=== PATIENT | female | born 1970 | race Caucasian/White ===

== ENCOUNTER 2020-06-23 08:58 | Emergency (ER) | payer MEDICARE, SELFPAY ==
[2020-06-23 09:00] VITALS: BP 134/95; PULSE 86; RESP 20; TEMP 36.6; O2SAT 100
--- NOTE | 2020-06-23 09:10 | ECG_ITS ---
Measurements Intervals [place] Rate: 81 P: 83 IA: 148 QRS: -40 QRSD: 103 T: 83 QT: 386 QTc: 449 Interpretive Statements SINUS RHYTHM LEFT AXIS DEVIATION INCOMPLETE RIGHT BUNDLE BRANCH BLOCK DELAYED PRECORDIAL R/S TRANSITION BORDERLINE ST-T WAVE ABNORMALITY- HIGH LATERAL LEADS BORDERLINE ECG Electronically Signed On 06-23-2020 10:15:19 [employer] by Corby Almanzar D.O.
[2020-06-23 09:51] VITALS: PULSE 98
--- NOTE | 2020-06-23 09:56 | ED.NEUROSD ---
HPI - Neuro Symptoms/Deficit General Chief Complaint: Chest Pain Stated Complaint: L ARM NUMB Time Seen by Provider: 06/23/20 09:15 Source: patient and family Mode of arrival: ambulatory Limitations: no limitations History of Present Illness HPI Narrative: This young woman presented to ER with complaints of numbness in the left face and in the left arm. She did not have any focal weakness at home. She came in with her significant other. She stated to me that she as had issues with neck pain and has had focal numbness in her left face in the past. Her numbness resolved spontaneously after she had been here just a few minutes. I spoke to her and told her I was concerned this could be a TIA. She decided to leave against medical advice. Onset (ago): minute(s) Timing confirmed by: other (significant other) Location: left face and left arm Severity: severe Quality: numb Relieving factors: none Exacerbating factors: none Context: sudden onset On Anticoagulants: No Associated symptoms: denies other symptoms Review of Systems Constitutional: Constitutional: Reports no additional constitutional complaints Eyes: Eyes: Reports no additional eye complaints ENT: Reports system reviewed and no additional complaints, except as documented Cardiovascular: Cardiovascular: Reports no additional cardiovascular complaints Respiratory: Respiratory: Reports no additional respiratory complaints Gastrointestinal: Gastrointestinal: Reports no additional gastrointestinal complaints Genitourinary: Genitourinary: Reports no additional female genitourinary complaints Musculoskeletal: Musculoskeletal: Reports no additional musculoskeletal complaints Integumentary/Breasts: Skin/Breast: Reports system reviewed and no additional complaints, except as docu Neurologic: Reports system reviewed and no additional complaints, except as documented Psychiatric: Psychiatric: Reports no additional psychiatric complaints Endocrine: Endocrine: Reports no additional endocrine complaints Hematologic/Lymphatic: Hematologic/Lymphatic: Reports no additional hematologic/lymphatic complaints Allergic/Immunologic: Allergic/Immunologic: Reports no additional allergic/immunologic complaints [facility] Past Medical History Medical History (Updated 06/24/20 @ 02:05 by Diego Acuna MD) Tardive dyskinesia Family History Family History (Updated 06/24/20 @ 02:06 by Diego Acuna MD) Mother Fibromyalgia Social History Social History (Updated 06/24/20 @ 02:07 by Diego Acuna MD) Smoking status: Current every day smoker Tobacco type: cigarettes Additional smoking assessment comments: 1 pack per day since teen Exam Const: General: no acute distress and alert Orientation/consciousness: patient oriented x3 HENMT: Head: normal to inspection Ears: external ears normal General nose exam: Normal external nose present Face and sinus: normal facial exam Mouth: Yes Normal oral and palatal mucosa present and Yes moist mucous membranes Throat: posterior oropharynx normal Eyes: Conjunctivae: conjunctivae normal Neck: Neck: normal visual inspection Chest: Chest palpation & inspection: normal inspection of the chest Resp: Effort & Inspection: normal respiratory effort Auscultation: clear to auscultation bilaterally Cardio: Rate: regular rate Rhythm: regular rhythm GI: GI Palp: Yes Soft to palpation (nontender) Skin: General skin exam: normal color Neuro: General: patient oriented x3 and moves all extremities Extrem: General: normal to inspection Psych: Appearance: grossly normal Mental Status: mental status grossly normal Thought content: Yes Normal thought content present Course Course Emergency Course: I spoke to the patient and asked to work her up as I felt she had a TIA. She refused and decided to sign out AMA. Vital Signs Vital signs: Vital Signs Temperature 36.6 C 06/23/20 09:00 Pulse Rate 86 06/23/20 09:00 Respiratory Rate
[2020-06-23 09:59] VITALS: BP 148/86; PULSE 91; RESP 20; TEMP 37.1; O2SAT 100
== END 2020-06-23 10:01 | disposition left against medical advice (07) ==
PROVIDERS: Emergency Provider Emergency Medicine
DX: G45.9 Transient cerebral ischemic attack, unspecified (principal); G24.01 Drug induced subacute dyskinesia; F17.210 Nicotine dependence, cigarettes, uncomplicated; Z53.29 Procedure and treatment not carried out because of patient's decision for other reasons
CPT/HCPCS: 93005; 99282; 99283